=== PATIENT | male | born 1965 | race Caucasian/White ===

== ENCOUNTER 2021-06-06 11:34 | Emergency (ER) | payer BC ==
[~2021-06-06] VITALS: Ht 177.8 cm; Wt 135.0 kg
[~2021-06-06 11:34] MED LIST: ASPI-1009 PO; BACI3.5O2 RIGHTEYE; CHOL100010 PO; FISH1CAP15 PO; LISI-232 PO; MAGN500C16 PO; NOR5T PO
[2021-06-06 13:23] LABS: D-DIMER 0.43 MG/L FEU (0-0.50)
[2021-06-06 13:52] VITALS: BP 126/73
--- NOTE | 2021-06-06 14:42 | NUR ---
pt seen and assessed by provider
== END 2021-06-06 14:14 | disposition home or self-care (01) ==
LOC: ER 11:35
DX: U07.1 COVID-19 (principal); R04.2 Hemoptysis; I10 Essential (primary) hypertension; G89.29 Other chronic pain; Z90.89 Acquired absence of other organs; Z98.890 Other specified postprocedural states; Z79.82 Long term (current) use of aspirin; Z79.899 Other long term (current) drug therapy
CPT/HCPCS: 36415; 85379; 99283

== ENCOUNTER 2022-09-25 14:59 | Emergency (ER) | payer BC ==
[~2022-09-25] VITALS: Ht 177.8 cm; Wt 150.0 kg
[~2022-09-25 14:59] MED LIST changes: -MAGN500C16 PO; +MAGN500C4 PO
[2022-09-25 18:46] VITALS: BP 196/115
--- NOTE | 2022-09-25 18:47 | NUR ---
Patient brought into triage for repeat VS, pt argumentative and uncooperative. Initially refused VS and then when VS were done argued that they were inaccurate. Patient asked to return to the lobby and stated "condesending bitch."
[2022-09-25 19:46] LABS: BASOPHILS % (AUTO) 0.3 % (0-1); EOSINOPHILS # (AUTO) 0.1 X10'3 (0-0.9); EOSINOPHILS % (AUTO) 0.8 % (0-6); HEMATOCRIT 47.4 % (42.0-52.0); HEMOGLOBIN 16.5 g/dl (14.0-17.9); LYMPHOCYTES # (AUTO) 0.9 X10'3 (1.1-4.8); LYMPHOCYTES % (AUTO) 7.4 % (21-51); MEAN CORPUSCULAR HEMOGLOBIN 30.3 PG (27.0-31.0); MEAN CORPUSCULAR HGB CONC 34.9 g/dL (33.0-36.5); MEAN CORPUSCULAR VOLUME 86.8 FL (78-98); MONOCYTES # (AUTO) 1.1 X10'3 (0-0.9); MONOCYTES % (AUTO) 8.5 % (2-12); NEUTROPHILS # (AUTO) 10.3 X10'3 (1.8-7.7); PLATELET COUNT 198 X10'3 (140-440); RED BLOOD COUNT 5.46 X10'6 (4.70-6.10); RED CELL DISTRIBUTION WIDTH 15.8 % (11.5-14.5); WHITE BLOOD COUNT 12.4 X10'3 (4.5-11.0)
[2022-09-25 19:55] LABS: D-DIMER 0.29 MG/L FEU (0-0.50)
[2022-09-25 19:59] LABS: ALANINE AMINOTRANSFERASE 19 U/L (12-78); ALBUMIN 4.4 G/DL (3.4-5.0); ALBUMIN/GLOBULIN RATIO 1.2 (1.1-1.5); ALKALINE PHOSPHATASE 66 IU/L (46-116); ANION GAP 10 (8-16); ASPARTATE AMINO TRANSFERASE 15 U/L (10-37); BILIRUBIN,TOTAL 0.6 MG/DL (0.1-1.0); BLOOD UREA NITROGEN 12 MG/DL (7-18); BUN/CREATININE RATIO 13.8 (5.4-32.0); CHLORIDE 103 MMOL/L (99-107); CREATININE 0.87 MG/DL (0.60-1.10); GLUCOSE 109 MG/DL (70-104); SODIUM 139 MMOL/L (135-145); TOTAL CARBON DIOXIDE 26.3 MMOL/L (24-32); TOTAL PROTEIN 8.1 G/DL (6.4-8.2); eGFR > 90 ML/MIN
[2022-09-25] MEDS ORDERED: levoFLOXACIN 250mg tablet PO ONE (23:00)
[2022-09-25] MEDS ORDERED: LEVO-65 PO (23:00)
== END 2022-09-25 23:09 | disposition home or self-care (01) ==
LOC: ER 14:59
DX: R05.9 Cough, unspecified (principal); G89.29 Other chronic pain; M54.9 Dorsalgia, unspecified; I10 Essential (primary) hypertension; Z79.899 Other long term (current) drug therapy; Z79.82 Long term (current) use of aspirin; Z79.1 Long term (current) use of non-steroidal anti-inflammatories (NSAID)
CPT/HCPCS: 36415; 71045; 80053; 85025; 85379; 99284

== ENCOUNTER 2023-09-23 06:14 | Day surgery (SDC) | payer BC ==
[2023-09-22 15:26] LABS: BASOPHILS # (AUTO) 0.1 X10'3 (0-0.2); BASOPHILS % (AUTO) 0.5 % (0-1); EOSINOPHILS % (AUTO) 0.4 % (0-6); HEMATOCRIT 48.7 % (42.0-52.0); HEMOGLOBIN 16.7 g/dl (14.0-17.9); LYMPHOCYTES # (AUTO) 1.3 X10'3 (1.1-4.8); LYMPHOCYTES % (AUTO) 10.4 % (21-51); MEAN CORPUSCULAR HEMOGLOBIN 30.2 PG (27.0-31.0); MEAN CORPUSCULAR HGB CONC 34.2 g/dL (33.0-36.5); MEAN CORPUSCULAR VOLUME 88.3 FL (78-98); MEAN PLATELET VOLUME 7.9 FL (7.4-10.4); MONOCYTES # (AUTO) 0.9 X10'3 (0-0.9); MONOCYTES % (AUTO) 7.3 % (2-12); NEUTROPHILS # (AUTO) 9.9 X10'3 (1.8-7.7); NEUTROPHILS % (AUTO) 81.4 % (42-75); PLATELET COUNT 240 X10'3 (140-440); RED BLOOD COUNT 5.52 X10'6 (4.70-6.10); RED CELL DISTRIBUTION WIDTH 14.6 % (11.5-14.5); WHITE BLOOD COUNT 12.1 X10'3 (4.5-11.0)
[2023-09-22 15:36] LABS: APTT 28 SECONDS (22-32)
[2023-09-22 15:56] LABS: ALBUMIN 4.3 G/DL (3.4-5.0); ANION GAP 10 (8-16); BLOOD UREA NITROGEN 14 MG/DL (7-18); BUN/CREATININE RATIO 16.1 (10.0-20.0); CALCIUM 9.1 MG/DL (8.5-10.1); CHLORIDE 101 MMOL/L (99-107); CREATININE 0.87 MG/DL (0.60-1.10); GLUCOSE 94 MG/DL (70-104); SODIUM 138 MMOL/L (135-145); eGFR > 90 ML/MIN
[2023-09-23] VITALS (10 sets, daily range): BP systolic 128–182; BP diastolic 82–102; PULSE 64–88; RESP 11–21; TEMP 97.7; O2SAT 93–96
[~2023-09-23] VITALS: Ht 180.3 cm; Wt 133.6 kg
[2023-09-23] MEDS ORDERED: normal saline 1,000 ML IV SCH (06:30)
[2023-09-23] MEDS ORDERED: diphenhydrAMINE 25mg capsule PO PRN (06:30)
[2023-09-23] MEDS ORDERED: LORazepam 0.5 MG tablet PO PRN (06:30)
[2023-09-23] MEDS ORDERED: AMLO-708 PO (06:59)
[2023-09-23] MEDS ORDERED: LOSA100T58 PO (06:59)
[2023-09-23] MEDS ORDERED: iohexol 350MG/ML 100ml bottle IV ONE (08:48)
[2023-09-23] MEDS ORDERED: LIDOcaine 1% (10mg/ml) 2ml vial ONE (08:48)
[2023-09-23] MEDS ORDERED: verapamil 2.5 mg/ml inj IV ONE (08:48)
[2023-09-23] MEDS ORDERED: fentaNYL/PF 50MCG/1 ML 2ML syringe ONE (08:48)
[2023-09-23] MEDS ORDERED: iohexol 350 MG/ML 50ML vial IV ONE (08:48)
[2023-09-23] MEDS ORDERED: heparin 1,000unit/ml 10ml vial 10 ML ONE (08:48)
[2023-09-23] MEDS ORDERED: midazolam 1 mg/ML 2ml injection ONE ×2 (08:48→09:32)
[2023-09-23] MEDS ORDERED: nitroGLYCERIN 500mcg/5mL D5W 5 ML IV ONE (08:49)
[2023-09-23 10:04] LABS: ISTAT Hct ART 47 %PCV (42-52); ISTAT O2 SATURATION ARTERIAL 96 % (95-98); ISTAT SOURCE ART
== END 2023-09-23 14:00 | disposition home or self-care (01) ==
LOC: SSTAY O 06:14
PROVIDERS: ATTEND Internal Medicine Cardiovascular Disease
DX: R94.39 Abnormal result of other cardiovascular function study (principal); I25.10 Atherosclerotic heart disease of native coronary artery without angina pectoris; I10 Essential (primary) hypertension; E11.9 Type 2 diabetes mellitus without complications; E78.5 Hyperlipidemia, unspecified; G47.39 Other sleep apnea; E66.9 Obesity, unspecified; Z68.41 Body mass index [BMI] 40.0-44.9, adult; Z79.01 Long term (current) use of anticoagulants; Z79.899 Other long term (current) drug therapy; Z98.890 Other specified postprocedural states; Z83.3 Family history of diabetes mellitus; Z81.8 Family history of other mental and behavioral disorders
CPT/HCPCS: 36415; 76937; 80048; 82803; 85014; 85025; 85610; 85730; 93005; 93460; 99152; 99153; J1644; J2250; J3010; J3490; J7030; Q0163; Q9967; A6258; A6402; C1725; C1751; C1894